=== PATIENT | female | born 1960 | race Caucasian/White ===

== ENCOUNTER 2018-12-19 10:22 | Inpatient (IN) | payer OTHER ==
[2018-12-19 10:44] LABS: ADD MAN DIFF? NO
[2018-12-19 10:46] LABS: WHITE BLOOD COUNT 12.3 10^3/ul (4.8-10.8)
[2018-12-19 10:46] LABS: BASOPHIL # 0.1 10^3/ul (0.0-0.1); BASOPHILS % 0.6 % (0.0-2.0); EOSINOPHILS # 0.1 10^3/ul (0.0-0.5); EOSINOPHILS % 1.1 % (0.0-7.0); HEMATOCRIT 38.8 % (37.0-47.0); HEMOGLOBIN 12.4 g/dl (12.0-16.0); LYMPHOCYTES # 2.4 10^3/ul (0.8-2.9); LYMPHOCYTES % 19.8 % (15.0-51.0); MEAN CORPUSCULAR HEMOGLOBIN 26.1 pg (29.0-33.0); MEAN CORPUSCULAR VOLUME 81.5 fl (82.0-101.0); MEAN PLATELET VOLUME 8.9 fl (7.4-10.4); MONOCYTE # 0.7 10^3/ul (0.3-0.9); MONOCYTES % 5.9 % (0.0-11.0); NEUTROPHIL # 8.9 10^3/ul (1.6-7.5); NEUTROPHILS % 72.2 % (39.0-77.0); PLATELET COUNT 440 10^3/UL (140-415); RED BLOOD COUNT 4.76 10^6/ul (4.20-5.40); RED CELL DISTRIBUTION WIDTH 14.5 % (11.5-14.5)
[2018-12-19] MEDS: SOD CHLORIDE 0.9% 1,000 ML IV ×2 (11:01→17:04)
[2018-12-19] MEDS: ASPIRIN 325 MG TAB PO (11:01)
[2018-12-19 11:07] LABS: INR 0.91; PROTIME 12.4 Sec (11.9-14.9)
[2018-12-19 11:08] LABS: PARTIAL THROMBOPLASTIN TIME 24.1 Sec (23.0-35.0)
[2018-12-19 11:16] LABS: HEMOGLOBIN A1C 6.5 % (0-5.9)
[2018-12-19 11:16] LABS: ALANINE AMINOTRANSFERASE 18 IU/L (13-69); ALBUMIN 4.1 g/dl (3.3-4.9); ALKALINE PHOSPHATASE 95 IU/L (42-121); ANION GAP 12 (5-13); ASPARTATE AMINO TRANSFERASE 28 IU/L (15-46); BILIRUBIN,INDIRECT 0.5 mg/dl (0-1.1); BILIRUBIN,TOTAL 0.5 mg/dl (0.2-1.3); BLOOD UREA NITROGEN 14 mg/dl (7-20); CALCIUM 9.6 mg/dl (8.4-10.2); CARBON DIOXIDE 21 mmol/L (21-31); CHLORIDE 110 mmol/L (97-110); CHOL/HDL RATIO 5.4 RATIO; CHOLESTEROL 233 mg/dl (100-200); Estimated GFR > 60 mL/min (>60); GLUCOSE 138 mg/dl (70-220); HDL CHOLESTEROL 43 mg/dl (35-98); LDL CHOLESTEROL,CALCULATED 157 mg/dl; POTASSIUM 3.4 mmol/L (3.5-5.1); SODIUM 143 mmol/L (135-144); TOTAL PROTEIN 8.2 g/dl (6.1-8.1); TRIGLYCERIDES 164 mg/dl (0-149)
[2018-12-19 11:28] LABS: TROPONIN-I < 0.012 ng/ml (0.000-0.120)
[2018-12-19] MEDS ORDERED: ACETAMINOPHEN 325 MG TAB PO (12:30)
[2018-12-19] MEDS ORDERED: ONDANSETRON 4 MG INJ IV (12:30)
[2018-12-19] MEDS ORDERED: DEXTROSE 50% 50 ML SYRINGE IV ×2 (16:30)
[2018-12-19] MEDS ORDERED: GLUCOSE GEL 15 GRAM TUBE PO ×2 (16:30)
[2018-12-19] MEDS ORDERED: GLUCAGON 1 MG INJ IM (16:30)
[2018-12-19] MEDS ORDERED: GLUCOSE GEL 15 GRAM TUBE BUCCAL (16:30)
[2018-12-19] MEDS: metFORMIN 500 MG TAB PO (17:12)
[2018-12-19 18:34] LABS: CREATINE KINASE 141 IU/L (23-200)
[2018-12-19 18:47] LABS: CK INDEX 0.7; CK-MB 1.03 ng/ml (0.0-2.4); TROPONIN-I < 0.012 ng/ml (0.000-0.120)
[2018-12-19] MEDS: ATORVASTATIN 20 MG TAB PO (21:00)
[2018-12-19] MEDS: INSULIN ASPART [NOVOLOG] 3 ML PEN SC (22:00)
[2018-12-19] MEDS: DORZOLAMIDE 2% 10 ML OPH BOTH EYES (22:03)
[2018-12-20 01:40] LABS: CREATINE KINASE 148 IU/L (23-200)
[2018-12-20 01:54] LABS: CK INDEX 0.6; CK-MB 0.95 ng/ml (0.0-2.4); TROPONIN-I < 0.012 ng/ml (0.000-0.120)
[2018-12-20] MEDS: ACCU-CHEK XX (02:00)
[2018-12-20] MEDS: LEVOTHYROXINE 50 MCG TAB PO (06:00)
[2018-12-20 06:06] LABS: CHOLESTEROL 228 mg/dl (100-200)
[2018-12-20 06:06] LABS: CHOL/HDL RATIO 6.1 RATIO; HDL CHOLESTEROL 37 mg/dl (35-98); LDL CHOLESTEROL,CALCULATED 158 mg/dl; TRIGLYCERIDES 166 mg/dl (0-149)
[2018-12-20] MEDS: metFORMIN 500 MG TAB PO ×2 (08:00→17:31)
[2018-12-20] MEDS: INSULIN ASPART [NOVOLOG] 3 ML PEN SC ×4 (08:00→20:21)
[2018-12-20] MEDS: ASPIRIN (EC) 81 MG TAB PO (09:00)
[2018-12-20] MEDS: METOPROLOL (XL) 25 MG TAB PO (09:00)
[2018-12-20] MEDS ORDERED: LISINOPRIL 10 MG TAB PO (09:00)
[2018-12-20] MEDS: DORZOLAMIDE 2% 10 ML OPH BOTH EYES ×3 (09:55→20:16)
[2018-12-20] MEDS ORDERED: hydrALAzine 20 MG INJ IV (12:30)
[2018-12-20] MEDS: ATORVASTATIN 80 MG TAB PO (20:16)
[2018-12-20 22:04] LABS: RAPID PLASMA REAGIN NONREACTIVE (NR)
[2018-12-21] MEDS: ACCU-CHEK XX (01:36)
[2018-12-21] MEDS: ACETAMINOPHEN 325 MG TAB PO ×3 (04:05→20:56)
[2018-12-21] MEDS: LEVOTHYROXINE 50 MCG TAB PO (05:42)
[2018-12-21 05:47] LABS: ADD MAN DIFF? NO
[2018-12-21 05:49] LABS: BASOPHIL # 0.1 10^3/ul (0.0-0.1); BASOPHILS % 0.6 % (0.0-2.0); EOSINOPHILS # 0.3 10^3/ul (0.0-0.5); EOSINOPHILS % 2.5 % (0.0-7.0); HEMATOCRIT 37.3 % (37.0-47.0); HEMOGLOBIN 12.1 g/dl (12.0-16.0); LYMPHOCYTES # 2.9 10^3/ul (0.8-2.9); LYMPHOCYTES % 28.2 % (15.0-51.0); MEAN CORPUSCULAR HEMOGLOBIN 26.1 pg (29.0-33.0); MEAN CORPUSCULAR HGB CONC 32.4 g/dl (32.0-37.0); MEAN CORPUSCULAR VOLUME 80.6 fl (82.0-101.0); MONOCYTE # 0.7 10^3/ul (0.3-0.9); MONOCYTES % 6.8 % (0.0-11.0); NEUTROPHIL # 6.4 10^3/ul (1.6-7.5); NEUTROPHILS % 61.6 % (39.0-77.0); PLATELET COUNT 439 10^3/UL (140-415); RED BLOOD COUNT 4.63 10^6/ul (4.20-5.40); RED CELL DISTRIBUTION WIDTH 14.3 % (11.5-14.5)
[2018-12-21 05:49] LABS: WHITE BLOOD COUNT 10.4 10^3/ul (4.8-10.8)
[2018-12-21 06:31] LABS: ANION GAP 10 (5-13); BLOOD UREA NITROGEN 13 mg/dl (7-20); CALCIUM 9.1 mg/dl (8.4-10.2); CARBON DIOXIDE 25 mmol/L (21-31); CHLORIDE 105 mmol/L (97-110); CREATININE 0.62 mg/dl (0.44-1.00); Estimated GFR > 60 mL/min (>60); GLUCOSE 115 mg/dl (70-220); MAGNESIUM 1.8 mg/dl (1.7-2.5); POTASSIUM 3.4 mmol/L (3.5-5.1); SODIUM 140 mmol/L (135-144)
[2018-12-21 06:46] LABS: FREE THYROXINE INDEX (Calc) 2.98 ug/ml (0.65-3.89); T3 UPTAKE 31.4 % (23.5-40.5); T4 (THYROXINE) 9.5 ug/dl (5.5-11.0)
[2018-12-21] MEDS: INSULIN ASPART [NOVOLOG] 3 ML PEN SC ×4 (07:56→20:57)
[2018-12-21] MEDS: ASPIRIN (EC) 81 MG TAB PO (09:16)
[2018-12-21] MEDS: METOPROLOL (XL) 25 MG TAB PO (09:17)
[2018-12-21] MEDS: metFORMIN 500 MG TAB PO ×2 (09:17→16:50)
[2018-12-21] MEDS: DORZOLAMIDE 2% 10 ML OPH BOTH EYES ×3 (09:17→20:57)
[2018-12-21] MEDS ORDERED: DIPHENHYDRAMINE 50 MG INJ IV (17:30)
[2018-12-21] MEDS: DIPHENHYDRAMINE 25 MG CAP PO (18:07)
[2018-12-21] MEDS: ATORVASTATIN 80 MG TAB PO (20:56)
[2018-12-22] MEDS: ACCU-CHEK XX (01:17)
[2018-12-22] MEDS: LEVOTHYROXINE 50 MCG TAB PO (05:21)
[2018-12-22 06:04] LABS: ADD MAN DIFF? NO
[2018-12-22 06:12] LABS: BASOPHIL # 0.1 10^3/ul (0.0-0.1); BASOPHILS % 0.7 % (0.0-2.0); EOSINOPHILS # 0.3 10^3/ul (0.0-0.5); EOSINOPHILS % 2.7 % (0.0-7.0); HEMATOCRIT 38.7 % (37.0-47.0); HEMOGLOBIN 12.3 g/dl (12.0-16.0); LYMPHOCYTES # 2.7 10^3/ul (0.8-2.9); LYMPHOCYTES % 28.2 % (15.0-51.0); MEAN CORPUSCULAR HEMOGLOBIN 26.1 pg (29.0-33.0); MEAN CORPUSCULAR HGB CONC 31.8 g/dl (32.0-37.0); MEAN PLATELET VOLUME 9.1 fl (7.4-10.4); MONOCYTE # 0.6 10^3/ul (0.3-0.9); MONOCYTES % 6.5 % (0.0-11.0); NEUTROPHILS % 61.6 % (39.0-77.0); PLATELET COUNT 437 10^3/UL (140-415); RED BLOOD COUNT 4.72 10^6/ul (4.20-5.40); RED CELL DISTRIBUTION WIDTH 14.1 % (11.5-14.5)
[2018-12-22 06:12] LABS: WHITE BLOOD COUNT 9.7 10^3/ul (4.8-10.8)
[2018-12-22 06:56] LABS: ANION GAP 8 (5-13); BLOOD UREA NITROGEN 13 mg/dl (7-20); CALCIUM 9.2 mg/dl (8.4-10.2); CARBON DIOXIDE 26 mmol/L (21-31); CHLORIDE 105 mmol/L (97-110); CREATININE 0.62 mg/dl (0.44-1.00); Estimated GFR > 60 mL/min (>60); GLUCOSE 94 mg/dl (70-220); POTASSIUM 3.7 mmol/L (3.5-5.1); SODIUM 139 mmol/L (135-144)
[2018-12-22] MEDS: INSULIN ASPART [NOVOLOG] 3 ML PEN SC ×4 (08:00→20:28)
[2018-12-22] MEDS: metFORMIN 500 MG TAB PO ×2 (08:14→17:51)
[2018-12-22] MEDS: ASPIRIN (EC) 81 MG TAB PO (08:15)
[2018-12-22] MEDS: DORZOLAMIDE 2% 10 ML OPH BOTH EYES ×3 (08:15→20:25)
[2018-12-22] MEDS: METOPROLOL (XL) 25 MG TAB PO (08:15)
[2018-12-22] MEDS: ACETAMINOPHEN 325 MG TAB PO (17:51)
[2018-12-22] MEDS ORDERED: NITROGLYCERIN (SL) 0.4 MG TAB SL (19:30)
[2018-12-22] MEDS: ATORVASTATIN 80 MG TAB PO (20:25)
[2018-12-23 01:09] LABS: TROPONIN-I < 0.012 ng/ml (0.000-0.120)
[2018-12-23] MEDS: ACCU-CHEK XX (02:00)
[2018-12-23] MEDS: LEVOTHYROXINE 50 MCG TAB PO (05:40)
[2018-12-23 05:56] LABS: ADD MAN DIFF? NO
[2018-12-23 06:05] LABS: WHITE BLOOD COUNT 10.5 10^3/ul (4.8-10.8)
[2018-12-23 06:05] LABS: BASOPHIL # 0.1 10^3/ul (0.0-0.1); BASOPHILS % 0.8 % (0.0-2.0); EOSINOPHILS # 0.3 10^3/ul (0.0-0.5); EOSINOPHILS % 2.6 % (0.0-7.0); HEMATOCRIT 39.4 % (37.0-47.0); HEMOGLOBIN 12.6 g/dl (12.0-16.0); LYMPHOCYTES # 2.9 10^3/ul (0.8-2.9); LYMPHOCYTES % 27.9 % (15.0-51.0); MEAN CORPUSCULAR HEMOGLOBIN 26.1 pg (29.0-33.0); MEAN CORPUSCULAR VOLUME 81.7 fl (82.0-101.0); MEAN PLATELET VOLUME 9.3 fl (7.4-10.4); MONOCYTE # 0.7 10^3/ul (0.3-0.9); MONOCYTES % 6.4 % (0.0-11.0); NEUTROPHIL # 6.5 10^3/ul (1.6-7.5); PLATELET COUNT 447 10^3/UL (140-415); RED BLOOD COUNT 4.82 10^6/ul (4.20-5.40); RED CELL DISTRIBUTION WIDTH 14.3 % (11.5-14.5)
[2018-12-23 06:33] LABS: ANION GAP 8 (5-13); BLOOD UREA NITROGEN 12 mg/dl (7-20); CALCIUM 9.4 mg/dl (8.4-10.2); CARBON DIOXIDE 28 mmol/L (21-31); CHLORIDE 104 mmol/L (97-110); CREATININE 0.66 mg/dl (0.44-1.00); Estimated GFR > 60 mL/min (>60); GLUCOSE 105 mg/dl (70-220); POTASSIUM 3.7 mmol/L (3.5-5.1); SODIUM 140 mmol/L (135-144)
[2018-12-23 06:49] LABS: TROPONIN-I < 0.012 ng/ml (0.000-0.120)
[2018-12-23] MEDS: INSULIN ASPART [NOVOLOG] 3 ML PEN SC ×4 (08:00→20:31)
[2018-12-23] MEDS: ASPIRIN (EC) 81 MG TAB PO (08:14)
[2018-12-23] MEDS: METOPROLOL (XL) 25 MG TAB PO (08:14)
[2018-12-23] MEDS: ACETAMINOPHEN 325 MG TAB PO ×2 (08:15→20:32)
[2018-12-23] MEDS: metFORMIN 500 MG TAB PO ×2 (08:17→17:13)
[2018-12-23] MEDS: DORZOLAMIDE 2% 10 ML OPH BOTH EYES ×3 (08:18→20:25)
[2018-12-23 12:46] LABS: TROPONIN-I < 0.012 ng/ml (0.000-0.120)
[2018-12-23] MEDS: ATORVASTATIN 80 MG TAB PO (20:26)
[2018-12-23] MEDS ORDERED: ONDANSETRON 4 MG INJ IV (21:30)
[2018-12-24] MEDS: ACCU-CHEK XX (02:00)
[2018-12-24] MEDS: LEVOTHYROXINE 50 MCG TAB PO (05:31)
[2018-12-24] MEDS: INSULIN ASPART [NOVOLOG] 3 ML PEN SC ×4 (08:00→20:10)
[2018-12-24] MEDS: ACETAMINOPHEN 325 MG TAB PO (08:31)
[2018-12-24] MEDS: ASPIRIN (EC) 81 MG TAB PO (08:31)
[2018-12-24] MEDS: DORZOLAMIDE 2% 10 ML OPH BOTH EYES ×3 (08:31→20:08)
[2018-12-24] MEDS: METOPROLOL (XL) 25 MG TAB PO (08:32)
[2018-12-24] MEDS: metFORMIN 500 MG TAB PO ×2 (08:42→17:47)
[2018-12-24] MEDS: MECLIZINE 12.5 MG TAB PO ×3 (09:27→20:08)
[2018-12-24] MEDS: ATORVASTATIN 80 MG TAB PO (20:08)
[2018-12-25] MEDS: ACCU-CHEK XX (02:00)
[2018-12-25] MEDS: LEVOTHYROXINE 50 MCG TAB PO (05:50)
[2018-12-25] MEDS: INSULIN ASPART [NOVOLOG] 3 ML PEN SC ×4 (07:45→20:24)
[2018-12-25] MEDS: ASPIRIN (EC) 81 MG TAB PO (08:08)
[2018-12-25] MEDS: DORZOLAMIDE 2% 10 ML OPH BOTH EYES ×3 (08:08→20:22)
[2018-12-25] MEDS: metFORMIN 500 MG TAB PO ×2 (08:08→17:26)
[2018-12-25] MEDS: MECLIZINE 12.5 MG TAB PO ×3 (08:08→20:22)
[2018-12-25] MEDS: METOPROLOL (XL) 25 MG TAB PO (08:08)
[2018-12-25] MEDS: ATORVASTATIN 80 MG TAB PO (20:22)
[2018-12-26] MEDS: ACCU-CHEK XX (01:33)
[2018-12-26] MEDS: LEVOTHYROXINE 50 MCG TAB PO (05:55)
[2018-12-26] MEDS: INSULIN ASPART [NOVOLOG] 3 ML PEN SC ×2 (08:00→12:00)
[2018-12-26] MEDS: MECLIZINE 12.5 MG TAB PO (08:44)
[2018-12-26] MEDS: METOPROLOL (XL) 25 MG TAB PO (08:45)
[2018-12-26] MEDS: ASPIRIN (EC) 81 MG TAB PO (08:45)
[2018-12-26] MEDS: DORZOLAMIDE 2% 10 ML OPH BOTH EYES ×2 (08:46→13:15)
[2018-12-26] MEDS: metFORMIN 500 MG TAB PO (08:56)
[2018-12-26] MEDS ORDERED: MECLIZINE 12.5 MG TAB PO (10:00)
== END 2018-12-26 17:56 | DRG 65 ==
LOC: E/R 10:22 → 6WM 12:19
DX: I63.9 Cerebral infarction, unspecified (principal); G81.94 Hemiplegia, unspecified affecting left nondominant side; I42.9 Cardiomyopathy, unspecified; I10 Essential (primary) hypertension; E11.40 Type 2 diabetes mellitus with diabetic neuropathy, unspecified; E03.9 Hypothyroidism, unspecified; I25.10 Atherosclerotic heart disease of native coronary artery without angina pectoris; R07.9 Chest pain, unspecified; E78.5 Hyperlipidemia, unspecified; E87.6 Hypokalemia
CPT/HCPCS: 36415; 70450; 70544; 70548; 70551; 71045; 72125; 80048; 80053; 80061; 82550; 82553; 82962; 83036; 83735; 84436; 84479; 84484; 85025; 85610; 85651; 85730; 86592; 92526; 92610; 93005; 93306; 97110; 97116; 97163; 97165; 97530; 97535; 99285-25

== ENCOUNTER 2018-12-26 18:34 | Inpatient (IN) | payer OTHER ==
[2018-12-26] MEDS ORDERED: ACETAMINOPHEN 325 MG TAB PO (19:00)
[2018-12-26] MEDS ORDERED: BISACODYL 10 MG SUPP PR (19:00)
[2018-12-26] MEDS ORDERED: PENDING SANTYL ORDER FOR WOUND CARE XX (19:00)
[2018-12-26] MEDS ORDERED: LACTULOSE 30ML CUP PO (19:00)
[2018-12-26] MEDS ORDERED: MAGNESIUM HYDROXIDE 30ML CUP PO (19:00)
[2018-12-26] MEDS ORDERED: DIPHENHYDRAMINE 25 MG CAP PO (20:00)
[2018-12-26] MEDS ORDERED: ONDANSETRON 4 MG INJ IV (20:00)
[2018-12-26] MEDS ORDERED: DEXTROSE 50% 50 ML SYRINGE IV ×2 (20:30)
[2018-12-26] MEDS ORDERED: GLUCOSE GEL 15 GRAM TUBE BUCCAL (20:30)
[2018-12-26] MEDS ORDERED: GLUCAGON 1 MG INJ IM (20:30)
[2018-12-26] MEDS ORDERED: GLUCOSE GEL 15 GRAM TUBE PO ×2 (20:30)
[2018-12-26] MEDS: ATORVASTATIN 80 MG TAB PO (20:34)
[2018-12-26] MEDS: DOCUSATE SODIUM 100 MG CAP PO ×2 (20:34→21:00)
[2018-12-26] MEDS: INSULIN ASPART [NOVOLOG] 3 ML PEN SC (21:00)
[2018-12-26] MEDS: ACCU-CHEK XX (21:00)
[2018-12-26] MEDS: SENNA TAB PO (21:00)
[2018-12-26] MEDS: MECLIZINE 12.5 MG TAB PO (21:20)
[2018-12-26] MEDS: DORZOLAMIDE 2% 10 ML OPH BOTH EYES (21:20)
[2018-12-27] MEDS: LEVOTHYROXINE 50 MCG TAB PO (05:40)
[2018-12-27 06:10] LABS: ADD MAN DIFF? NO
[2018-12-27 06:13] LABS: WHITE BLOOD COUNT 9.2 10^3/ul (4.8-10.8)
[2018-12-27 06:13] LABS: BASOPHIL # 0.1 10^3/ul (0.0-0.1); BASOPHILS % 0.8 % (0.0-2.0); EOSINOPHILS # 0.2 10^3/ul (0.0-0.5); EOSINOPHILS % 2.4 % (0.0-7.0); HEMATOCRIT 38.1 % (37.0-47.0); HEMOGLOBIN 12.3 g/dl (12.0-16.0); LYMPHOCYTES # 2.8 10^3/ul (0.8-2.9); LYMPHOCYTES % 30.7 % (15.0-51.0); MEAN CORPUSCULAR HEMOGLOBIN 26.3 pg (29.0-33.0); MEAN CORPUSCULAR HGB CONC 32.3 g/dl (32.0-37.0); MEAN CORPUSCULAR VOLUME 81.4 fl (82.0-101.0); MEAN PLATELET VOLUME 9.1 fl (7.4-10.4); MONOCYTE # 0.6 10^3/ul (0.3-0.9); MONOCYTES % 6.6 % (0.0-11.0); NEUTROPHIL # 5.5 10^3/ul (1.6-7.5); NEUTROPHILS % 59.4 % (39.0-77.0); PLATELET COUNT 415 10^3/UL (140-415); RED BLOOD COUNT 4.68 10^6/ul (4.20-5.40); RED CELL DISTRIBUTION WIDTH 14.3 % (11.5-14.5)
[2018-12-27 06:32] LABS: ALANINE AMINOTRANSFERASE 24 IU/L (13-69); ALBUMIN 3.8 g/dl (3.3-4.9); ALBUMIN/GLOBULIN RATIO 1.02; ALKALINE PHOSPHATASE 99 IU/L (42-121); ANION GAP 9 (5-13); ASPARTATE AMINO TRANSFERASE 25 IU/L (15-46); BILIRUBIN,INDIRECT 0.7 mg/dl (0-1.1); BILIRUBIN,TOTAL 0.7 mg/dl (0.2-1.3); BLOOD UREA NITROGEN 10 mg/dl (7-20); CALCIUM 9.2 mg/dl (8.4-10.2); CARBON DIOXIDE 26 mmol/L (21-31); CHLORIDE 105 mmol/L (97-110); CREATININE 0.59 mg/dl (0.44-1.00); Estimated GFR > 60 mL/min (>60); GLUCOSE 101 mg/dl (70-220); POTASSIUM 3.6 mmol/L (3.5-5.1); SODIUM 140 mmol/L (135-144); TOTAL PROTEIN 7.5 g/dl (6.1-8.1)
[2018-12-27 06:59] LABS: ADD UMIC NO; UR ASCORBIC ACID NEGATIVE (NEGATIVE); UR BILIRUBIN (Dip) NEGATIVE (NEGATIVE); UR BLOOD (Dip) NEGATIVE (NEGATIVE); UR CLARITY CLEAR (CLEAR); UR COLOR YELLOW (YELLOW); UR GLUCOSE (Dip) NEGATIVE (NEGATIVE); UR KETONES (Dip) NEGATIVE (NEGATIVE); UR LEUKOCYTE ESTERASE (Dip) NEGATIVE Leu/ul (NEGATIVE); UR NITRITE (Dip) NEGATIVE (NEGATIVE); UR SPECIFIC GRAVITY (Dip) 1.014 (1.003-1.030); UR TOTAL PROTEIN (Dip) NEGATIVE (NEGATIVE); UR UROBILINOGEN (Dip) NEGATIVE (NEGATIVE)
[2018-12-27] MEDS: ACCU-CHEK XX ×4 (07:05→21:00)
[2018-12-27] MEDS: INSULIN ASPART [NOVOLOG] 3 ML PEN SC ×4 (07:35→21:00)
[2018-12-27] MEDS: metFORMIN 500 MG TAB PO ×2 (08:12→17:20)
[2018-12-27] MEDS: MECLIZINE 12.5 MG TAB PO ×3 (08:40→20:48)
[2018-12-27] MEDS: METOPROLOL (XL) 25 MG TAB PO (08:41)
[2018-12-27] MEDS: ACETAMINOPHEN 325 MG TAB PO ×2 (08:41→19:42)
[2018-12-27] MEDS: DOCUSATE SODIUM 100 MG CAP PO ×2 (08:41→21:00)
[2018-12-27] MEDS: ASPIRIN (EC) 81 MG TAB PO (08:41)
[2018-12-27] MEDS: DORZOLAMIDE 2% 10 ML OPH BOTH EYES ×3 (08:41→20:48)
[2018-12-27] MEDS: ATORVASTATIN 80 MG TAB PO (20:48)
[2018-12-27] MEDS: SENNA TAB PO (21:00)
[2018-12-28] MEDS: LEVOTHYROXINE 50 MCG TAB PO (06:25)
[2018-12-28] MEDS: ACCU-CHEK XX ×4 (07:05→20:52)
[2018-12-28] MEDS: INSULIN ASPART [NOVOLOG] 3 ML PEN SC ×4 (07:35→20:51)
[2018-12-28] MEDS: metFORMIN 500 MG TAB PO ×2 (08:00→17:26)
[2018-12-28] MEDS: POTASSIUM CHLORIDE (SR) 20 MEQ TAB PO (09:29)
[2018-12-28] MEDS: LIDOCAINE 5% PATCH TD (09:29)
[2018-12-28] MEDS: MECLIZINE 12.5 MG TAB PO ×3 (09:29→20:51)
[2018-12-28] MEDS: DORZOLAMIDE 2% 10 ML OPH BOTH EYES ×3 (09:29→20:51)
[2018-12-28] MEDS: ACETAMINOPHEN 325 MG TAB PO (09:31)
[2018-12-28] MEDS: ASPIRIN (EC) 81 MG TAB PO (09:31)
[2018-12-28] MEDS: METOPROLOL (XL) 25 MG TAB PO (09:31)
[2018-12-28] MEDS: DOCUSATE SODIUM 100 MG CAP PO ×2 (09:31→20:51)
[2018-12-28] MEDS: SENNA TAB PO (20:51)
[2018-12-28] MEDS: ATORVASTATIN 80 MG TAB PO (20:51)
[2018-12-29] MEDS: LEVOTHYROXINE 50 MCG TAB PO (06:20)
[2018-12-29] MEDS: INSULIN ASPART [NOVOLOG] 3 ML PEN SC ×4 (07:35→20:36)
[2018-12-29] MEDS: metFORMIN 500 MG TAB PO ×2 (07:51→17:19)
[2018-12-29] MEDS: ACCU-CHEK XX ×4 (07:53→20:40)
[2018-12-29] MEDS: LIDOCAINE 5% PATCH TD (09:00)
[2018-12-29] MEDS: MECLIZINE 12.5 MG TAB PO (09:00)
[2018-12-29] MEDS: DOCUSATE SODIUM 100 MG CAP PO ×2 (09:00→20:36)
[2018-12-29] MEDS: DORZOLAMIDE 2% 10 ML OPH BOTH EYES ×3 (09:02→20:36)
[2018-12-29] MEDS: METOPROLOL (XL) 25 MG TAB PO (09:03)
[2018-12-29] MEDS: ASPIRIN (EC) 81 MG TAB PO (09:03)
[2018-12-29] MEDS ORDERED: MECLIZINE 12.5 MG TAB PO (09:30)
[2018-12-29] MEDS: ACETAMINOPHEN 325 MG TAB PO (19:44)
[2018-12-29] MEDS: SENNA TAB PO (20:36)
[2018-12-29] MEDS: ATORVASTATIN 80 MG TAB PO (20:36)
[2018-12-30] MEDS: LEVOTHYROXINE 50 MCG TAB PO (06:15)
[2018-12-30] MEDS: ACETAMINOPHEN 325 MG TAB PO (06:18)
[2018-12-30] MEDS: ACCU-CHEK XX ×4 (07:05→21:20)
[2018-12-30] MEDS: INSULIN ASPART [NOVOLOG] 3 ML PEN SC ×4 (07:35→21:00)
[2018-12-30] MEDS: metFORMIN 500 MG TAB PO ×2 (07:47→17:12)
[2018-12-30] MEDS: DOCUSATE SODIUM 100 MG CAP PO ×2 (09:00→21:19)
[2018-12-30] MEDS: ASPIRIN (EC) 81 MG TAB PO (09:38)
[2018-12-30] MEDS: DORZOLAMIDE 2% 10 ML OPH BOTH EYES ×3 (09:38→21:19)
[2018-12-30] MEDS: METOPROLOL (XL) 25 MG TAB PO (09:39)
[2018-12-30] MEDS: LIDOCAINE 5% PATCH TD (09:40)
[2018-12-30] MEDS: SENNA TAB PO (21:19)
[2018-12-30] MEDS: ATORVASTATIN 80 MG TAB PO (21:20)
[2018-12-31] MEDS: LEVOTHYROXINE 50 MCG TAB PO (06:54)
[2018-12-31] MEDS: ACETAMINOPHEN 325 MG TAB PO (06:56)
[2018-12-31] MEDS: NITROGLYCERIN (SL) 0.4 MG TAB SL (07:23)
[2018-12-31] MEDS: INSULIN ASPART [NOVOLOG] 3 ML PEN SC ×4 (07:35→21:00)
[2018-12-31] MEDS: ACCU-CHEK XX ×4 (08:09→21:34)
[2018-12-31] MEDS: metFORMIN 500 MG TAB PO ×2 (08:10→18:06)
[2018-12-31] MEDS: METOPROLOL (XL) 25 MG TAB PO (09:18)
[2018-12-31] MEDS: DOCUSATE SODIUM 100 MG CAP PO ×2 (09:18→21:29)
[2018-12-31] MEDS: DORZOLAMIDE 2% 10 ML OPH BOTH EYES ×3 (09:18→21:30)
[2018-12-31] MEDS: ASPIRIN (EC) 81 MG TAB PO (09:18)
[2018-12-31] MEDS: LIDOCAINE 5% PATCH TD (09:19)
[2018-12-31] MEDS: ATORVASTATIN 80 MG TAB PO (21:29)
[2018-12-31] MEDS: SENNA TAB PO (21:29)
[2019-01-01] MEDS: LEVOTHYROXINE 50 MCG TAB PO (07:00)
[2019-01-01] MEDS: ACCU-CHEK XX ×3 (07:05→17:05)
[2019-01-01] MEDS: INSULIN ASPART [NOVOLOG] 3 ML PEN SC ×3 (07:35→17:31)
[2019-01-01] MEDS: metFORMIN 500 MG TAB PO ×2 (08:00→17:32)
[2019-01-01] MEDS: LIDOCAINE 5% PATCH TD (09:21)
[2019-01-01] MEDS: ASPIRIN (EC) 81 MG TAB PO (09:21)
[2019-01-01] MEDS: DORZOLAMIDE 2% 10 ML OPH BOTH EYES ×2 (09:21→12:00)
[2019-01-01] MEDS: DOCUSATE SODIUM 100 MG CAP PO (09:22)
[2019-01-01] MEDS: METOPROLOL (XL) 25 MG TAB PO (09:22)
[2019-01-01] MEDS: ACETAMINOPHEN 325 MG TAB PO ×2 (12:00→17:32)
== END 2019-01-01 18:32 | disposition home health service (06) | DRG 57 ==
LOC: VRC 12-29 00:37
PROVIDERS: Physical Medicine & Rehabilitation
PROC: F07Z9FZ Gait Training/Functional Ambulation Treatment using Assistive, Adaptive, Supportive or Protective Equipment (ICD-10-PCS; principal; 2018-12-26)
PROC: F07Z8FZ Transfer Training Treatment using Assistive, Adaptive, Supportive or Protective Equipment (ICD-10-PCS; 2018-12-26)
PROC: F07Z5FZ Bed Mobility Treatment using Assistive, Adaptive, Supportive or Protective Equipment (ICD-10-PCS; 2018-12-26)
PROC: F08Z2FZ Grooming/Personal Hygiene Treatment using Assistive, Adaptive, Supportive or Protective Equipment (ICD-10-PCS; 2018-12-26)
PROC: F08Z0FZ Bathing/Showering Techniques Treatment using Assistive, Adaptive, Supportive or Protective Equipment (ICD-10-PCS; 2018-12-26)
PROC: F08Z1FZ Dressing Techniques Treatment using Assistive, Adaptive, Supportive or Protective Equipment (ICD-10-PCS; 2018-12-26)
DX: I69.354 Hemiplegia and hemiparesis following cerebral infarction affecting left non-dominant side (principal); I42.9 Cardiomyopathy, unspecified; R47.01 Aphasia; I10 Essential (primary) hypertension; E03.9 Hypothyroidism, unspecified; E78.5 Hyperlipidemia, unspecified; I25.10 Atherosclerotic heart disease of native coronary artery without angina pectoris; E11.40 Type 2 diabetes mellitus with diabetic neuropathy, unspecified; R42 Dizziness and giddiness; R13.10 Dysphagia, unspecified; R07.9 Chest pain, unspecified; R13.12 Dysphagia, oropharyngeal phase; R48.9 Unspecified symbolic dysfunctions
CPT/HCPCS: 80053; 81003; 82962; 85025; 87081; 87086; 92507; 92523; 92526; 92610; 97110; 97112; 97116; 97163; 97166; 97530; 97535